=== PATIENT | male | born 1935 | race Caucasian/White ===

== ENCOUNTER 2022-12-03 07:22 | Emergency (ER) | payer OTHER ==
[~2022-12-03] VITALS: Ht 185.4 cm; Wt 77.2 kg
[2022-12-03] MEDS ORDERED: SODIUM CHLORIDE 0.9% 1,000 ML IV ONE (07:30)
[2022-12-03 07:43] LABS: Basophils # (auto) 0 10 ^3/uL (0-0.2); Basophils % (auto) 0.6 % (0.0-2.0); Eosinophils # (auto) 0.2 10 ^3/uL (0-0.8); Hematocrit 37.5 % (41.0-53.0); Hemoglobin 12.8 g/dL (13.5-17.5); Lymphocytes # (auto) 1.4 10 ^3/uL (0.4-5.4); Lymphocytes % (auto) 23.1 % (10.0-50.0); Mean Corpuscular Hgb Conc. 34.1 g/dL (32.0-36.0); Mean Corpuscular Volume 96.8 fL (80.0-100.0); Monocytes # (auto) 0.8 10 ^3/uL (0-1.3); Neutrophils # (auto) 3.5 10 ^3/uL (1.6-8.6); Neutrophils % (auto) 59.3 % (37.0-80.0); Red Blood Cells 3.88 10^6/uL (4.5-5.90); Red Cell Distribution Width 13.9 % (11.8-14.3); White Blood Cell 5.9 10^3/uL (4.4-10.8)
[2022-12-03 08:26] LABS: Potassium 4.4 mmol/L (3.5-5.1)
[2022-12-03 09:19] LABS: Albumin 3.2 g/dL (3.4-5.0); BUN/Creatinine Ratio 13.8 (10.0-20.0); Calcium 8.7 mg/dL (8.5-10.1)
[2022-12-03 09:22] LABS: Bilirubin, Total 0.5 mg/dL (0.2-1.0); Total Protein 6.9 g/dL (6.4-8.2)
[2022-12-03 11:19] VITALS: BP 131/66
== END 2022-12-03 13:50 | disposition home or self-care (01) ==
LOC: ER 07:22 → EDBD 07:22 → ER 13:50
DX: I10 Essential (primary) hypertension (principal); R07.89 Other chest pain; I48.91 Unspecified atrial fibrillation; Z86.73 Personal history of transient ischemic attack (TIA), and cerebral infarction without residual deficits
CPT/HCPCS: 36415; 71045; 80053; 83880; 84484; 85025; 93005; 96360; 96361; 99285; J7030

== ENCOUNTER 2023-09-14 03:29 | Emergency (ER) | payer OTHER ==
[~2023-09-14] VITALS: Ht 180.3 cm; Wt 84.0 kg
[2023-09-14] MEDS ORDERED: CALCIUM CHLOR(10%) 100MG/ML 10ML SYRINGE IV ONE (03:30)
[2023-09-14] MEDS ORDERED: AMIODARONE HCL (50 MG/ ML) 3 ML VIAL IV ONE (03:30)
[2023-09-14] MEDS: ETOMIDATE (2MG/ML) 20ML VIAL IV ONE ×2 (03:30→03:45)
[2023-09-14] MEDS ORDERED: SODIUM BICARB 8.4% 50Meq/50ml SYR INJ IV ONE (03:30)
[2023-09-14] MEDS: SODIUM CHLORIDE 0.9% 1,000 ML IV ONE (03:30)
[2023-09-14] MEDS ORDERED: MAGNESIUM SULF 50% 40 MEQ/10 ML VL IV ONE (03:30)
[2023-09-14] MEDS ORDERED: EPINEPHrine HCL 1 MG/10 ML SYRG IV ONE (03:30)
[2023-09-14] MEDS: MIDAZOLAM DRIP 50 mg/50mL 50 ML IV SCH (03:40)
[2023-09-14] MEDS ORDERED: ONDANSETRON HCL 4 MG/2 ML VIAL IV ONE (03:45)
[2023-09-14 04:00] LABS: Basophils # (auto) 0 10 ^3/uL (0-0.2); Basophils % (auto) 0.3 % (0.0-2.0); Eosinophils # (auto) 0 10 ^3/uL (0-0.8); Eosinophils % (auto) 0.1 % (0.0-7.0); Hematocrit 18.1 % (41.0-53.0); Lymphocytes # (auto) 3.4 10 ^3/uL (0.4-5.4); Lymphocytes % (auto) 28.7 % (10.0-50.0); Mean Corpuscular Hemoglobin 33.4 pg (28.0-32.0); Mean Corpuscular Hgb Conc. 28.7 g/dL (32.0-36.0); Mean Corpuscular Volume 116.2 fL (80.0-100.0); Monocytes # (auto) 0.7 10 ^3/uL (0-1.3); Monocytes % (auto) 5.6 % (0.0-12.0); Neutrophils # (auto) 7.8 10 ^3/uL (1.6-8.6); Neutrophils % (auto) 65.3 % (37.0-80.0); Nucleated Red Blood Cells % 0.4 %; Red Blood Cells 1.56 10^6/uL (4.5-5.90); Red Cell Distribution Width 19.2 % (11.8-14.3)
[2023-09-14 04:02] LABS: Hemoglobin 5.2 g/dL (13.5-17.5)
[2023-09-14] MEDS: EPINEPHrine HCL 1 MG/10 ML SYRG ONE ×2 (04:09→05:16)
[2023-09-14 04:15] LABS: Alanine Aminotransferase 47 U/L (7-40); Albumin 2.8 g/dL (3.2-4.8); Alkaline Phosphatase 43 U/L (46-116); Anion Gap 17 (5-15); Aspartate Aminotransferase 46 U/L (13-40); BUN/Creatinine Ratio 26.1 (10.0-20.0); Bilirubin, Total 0.3 mg/dL (0.2-1.0); Blood Urea Nitrogen 40 mg/dL (9-23); Calcium 7.9 mg/dL (8.7-10.4); Carbon Dioxide 12 mmol/L (20-30); Chloride 113 mmol/L (98-107); Glucose 327 mg/dL (74-106); Sodium 142 mmol/L (136-145); Total Protein 4.2 g/dL (5.7-8.2)
[2023-09-14 04:17] LABS: INR 1.53 (0.9-1.15); Partial Thromboplastin Time 34.8 SEC (24.5-34.5); Prothrombin Time 15.6 sec (9.3-11.8)
[2023-09-14 04:25] VITALS: RESP 17
[2023-09-14 04:25] LABS: Lactic Acid w/Reflex 8.7 mmol/L (0.4-2.0)
[2023-09-14] MEDS: EPINEPHrine HCL 250 ML IV SCH (04:25)
[2023-09-14 04:35] VITALS: BP 37/20; PULSE 50
[2023-09-14] MEDS: NOREPINEPHRINE 8 MG/250ML KIT 250 ML IV SCH (04:35)
[2023-09-14] MEDS: EPINEPHrine HCL 250 ML IV ONE (04:39)
[2023-09-14] MEDS: NOREPINEPHRINE 8 MG/250ML KIT 250 ML IV ONE (04:39)
[2023-09-14] MEDS ORDERED: VASOPRESSIN 20 UNIT/ML ONE (04:50)
== END 2023-09-14 04:57 ==
LOC: EDUNIT# 03:29 → ER 03:29 → EDBD 03:29 → ER 04:57
DX: A41.9 Sepsis, unspecified organism (principal); I46.9 Cardiac arrest, cause unspecified; D64.89 Other specified anemias; K92.2 Gastrointestinal hemorrhage, unspecified; I25.2 Old myocardial infarction; R07.89 Other chest pain; I10 Essential (primary) hypertension; I48.91 Unspecified atrial fibrillation; Z86.73 Personal history of transient ischemic attack (TIA), and cerebral infarction without residual deficits
CPT/HCPCS: 31500; 36415; 36430; 36556; 80053; 83605; 83880; 84484; 85025; 85610; 85730; 86920; 87040; 87070; 87077; 87186; 87205; 92950; 93005; 96360; 99291; J0171; J0282; J3475; J7030; P9016